=== PATIENT | female | born 1975 | race Caucasian/White ===

== ENCOUNTER → 2018-04-26 | Day surgery (SDC) | payer OTHER ==
[~2018-04-26] MED LIST: LIDOCAINE 1% 2 ML INJ ID PRN; LR 1,000 ML IV ONE
[2018-04-26 06:24] VITALS: BP 115/69
--- NOTE | 2018-04-26 08:04 | SOAPPROG ---
SOAP Progress Note Assessment/Plan: Assessment: patient arrived for DaVinci hysterectomy having seen Dr. Barnett yesterday to evaluate for vision loss. He told her she likely has intracranial hypertension , prescribed Diamox and is arranging for further w/u. With an possible IC HTN and the need for steep Trendelenburg it is felt best to delay the surgery until the patient is fully evaluated. D/W Dr. Rowland and multiple anesthesiologists. Plan: patient to get full evaluation and then return for surgery 04/26/18 07:59 Objective: Vital Signs Temp Pulse Resp BP Pulse Ox 37.0 C 77 18 115/69 96 04/26/18 06:56 04/26/18 06:56 04/26/18 06:56 04/26/18 06:56 04/26/18 06:56 ICD10 Worksheet Patient Problems: Problems Problem Status Onset Endometriosis Acute Intracranial hypertension Acute - ICD10 Problem Qualifiers (1) Endometriosis (2) Intracranial hypertension
== END | disposition home or self-care (01) ==
LOC: UNDOADMOB 05:42 → F3E 05:42 → EDSTATUS 07:15 → FSGY 08:00
PROVIDERS: ATTEND Obstetrics & Gynecology
DX: N80.9 Endometriosis, unspecified (principal); G93.2 Benign intracranial hypertension; Z53.09 Procedure and treatment not carried out because of other contraindication

== ENCOUNTER 2018-05-10 08:26 | Observation (INO) | payer OTHER ==
[2018-05-10] MEDS ORDERED: LR 1,000 ML IV ONE (08:33)
[2018-05-10] MEDS ORDERED: LIDOCAINE 1% 2 ML INJ ID PRN (08:33)
--- NOTE | 2018-05-10 08:55 | PDGENHP ---
History and Physical History and Physical: Assessment and Plan: 1. Dysmenorrhea Carol has very heavy menses as well as pelvic pain highly suggestive of endometriosis. We reviewed all conservative and surgical options. At the end of our discussion she is interested in surgical treatment. This will be a robotic assisted total laparoscopic hysterectomy, excision of endometriosis, and mid urethral sling. She has given me permission to remove one or both ovaries if I deem it would improve her pelvic pain issues. 2. Dyspareunia 3. Menorrhagia with regular cycle 4. Genuine stress incontinence, female Subjective: Patient ID: Carol Ray is a 42 y.o. female who presents to [facility] for surgical consultation. HPI Carol was scheduled for a robotic hysterectomy and mid urethral sling 2 weeks ago. She had seen an eye doctor who noted increased intraocular pressure. As a result we counseled her surgery until her evaluation was completed. This has now been done. She has been cleared for surgery. She is on Diamox to help keep the pressure down. He did remove some fluid which also brought her pressure down. She understands however there is still a very small risk of blindness as a result of the Trendelenburg position. Carol Ray presents for a preoperative visit. She is scheduled for a robotic assisted total laparoscopic hysterectomy, excision of endometriosis, and mid urethral sling. The risks, benefits, and alternatives were presented and informed consent was obtained. 40 minutes of this 40 minute appointment was spent counceling, reviewing the procedure in detail, and discussing the preoperative and postoperative instructions. Below is a copy of our prior visit note. Carol is a 42-year-old para 2 woman who presents for surgical consultation. She has extremely heavy menses. She underwent a pelvic ultrasound which showed a probable submucous polyp. She saw Dr. Paulino about her heavy menses. At the end of their discussion they decided to proceed to hysterectomy. Additionally she has dysmenorrhea, dyspareunia, dyschezia, and stress incontinence. The pain with her menses essentially immobilizes her. She describes it as a sharp stabbing pain where she cannot move. It will last about 20 minutes then go away temporarily. Will then come and go. It is typically worse when she has a heavy flow or is passing clots. She has a similar sharp stabbing pain with intercourse orgasms as well as passing bowel movements. She leaks urine with coughing laughing and sneezing. This has not improved since doing pelvic muscle strengthening exercises. PastMedicalHistory Past Medical History: Diagnosis Date Abnormal Pap smear of cervix Cervical cancer (HC code) per pt - CKC Class 2 obesity in adult 01/18/2018 Depression with anxiety Dysuria OCD (obsessive compulsive disorder) Urinary tract infection PastSurgicalHistory Past Surgical History: Procedure Laterality Date cervical conization loop electrode excision 2005 cone, not leep - [place] - pt told [place] CHOLECYSTECTOMY, LAPAROSCOPIC POLYPECTOMY anal PREVIOUS SURGERIES removal of lesion left forearm in childhood, benign lipoma TONSILLECTOMY TUBAL LIGATION 04/1998 tumors left forearm CURRENT MEDICATIONS: Current Outpatient Medications Medication Sig acetaZOLAMIDE (DIAMOX) 500 mg 12 hr capsule TK 1 C PO BID caprylic/capric triglyceride (CAPRYLIC-CAPRIC TRIGLY, BULK, MISC) cholecalciferol (D3-2000) 2,000 unit capsule IRON, FERROUS SULFATE, PO Lactobacillus acidophilus (PROBIOTIC PO) multivitamin (HEXAVITAMIN) per tablet Take 1 tablet by mouth daily. sertraline (ZOLOFT) 100 mg tablet Take 2 tablets by mouth daily. No current facility-administered medications for this visit. ALLERGIES: No known drug allergies I have reviewed, verified and agree with the past medical, surgical, , family, social and ROS history as documented by the RN today. Objective: Vital Signs: There were no vitals taken for this visit. Physical Exam Gen: This is an alert, well developed woman in no distress. Neuro: She moves all extremities. Psych: She is appropriate, oriented, with normal affect. Neck: No thyroid enlargement, adenopathy, or tenderness. Lungs: Clear to ascultation, no wheezes or rales. Heart: Regular rate and rhythm without obvious murmurs. Abdomen: Soft, non-tender, without guarding, rebound, or masses. Extremities: No edema or cyanosis. Pelvic: Normal external genitalia. Non-gaping introitus, vagina without discharge, adequately estrogenized, no significant prolapse. Cervix without lesions or discharge. Uterus normal sized. Adnexa non-tender without enlargement. She is exquisitely tender surrounding the cervix especially posteriorly and in the posterior cul-de-sac. The uterus has reduced mobility. The urethra is mobile with obvious leakage of urine with minimal coughing. DATA: I have reviewed the pertinent medical records. TIME/COMMUNICATION: I personally spent a total of 50 minutes. Of that 40 minutes was counseling/ coordination of patient's care. See my note above for details. Milton Rowland MD Board Certified Female Pelvic Medicine and Reconstructive Surgery Director of Minimally Invasive Gynecologic Surgery, [facility] Surgeon in Minimally Invasive Gynecologic Surgery [facility] Surgeon in Robotic Surgery
--- NOTE | 2018-05-10 08:55 | PDHPUP ---
History & Physical Update H&P update statement: This history and physical update is based on an assessment of the patient which was completed after admission or registration (within 24 hours), but prior to the surgery/procedure. H&P update: H&P reviewed & patient examined, no change in patient's condition since H&P completed
[2018-05-10] MEDS ORDERED: PHENAZOPYRIDINE HCL 200 MG TAB PO ONE (09:04)
[2018-05-10] MEDS ORDERED: ceFAZolin 2 GM/DEXTROSE 100 ML IV ONE (09:04)
[2018-05-10] MEDS ORDERED: GABAPENTIN 300 MG CAP PO ONE (09:04)
[2018-05-10] MEDS ORDERED: ACETAMINOPHEN 500 MG TAB PO ONE (09:04)
[2018-05-10] MEDS ORDERED: BUPIVACAINE/EPI 0.5% 30 ML SDV ONE (09:18)
[2018-05-10] MEDS ORDERED: MIDAZOLAM 2 MG/2 ML VIAL ONE (09:21)
[2018-05-10] MEDS ORDERED: PROPOFOL 200 MG/20 ML VIAL ONE (09:29)
[2018-05-10] MEDS ORDERED: fentaNYL 250 MCG/5 ML INJ ONE (09:29)
[2018-05-10] MEDS ORDERED: ROCURONIUM 50 MG/5 ML VIAL ONE (09:29)
[2018-05-10] MEDS ORDERED: LIDOCAINE 2% 100 MG/5 ML SYR ONE (09:29)
[2018-05-10] MEDS ORDERED: KETOROLAC 30 MG/1 ML SDV ONE (09:30)
[2018-05-10] MEDS ORDERED: ONDANSETRON 4 MG/2 ML VIAL ONE (09:30)
[2018-05-10] MEDS ORDERED: RANITIDINE 50 MG/2 ML VIAL ONE (09:30)
[2018-05-10] MEDS ORDERED: DEXAMETHASONE 4 MG/ML VIAL ONE (09:30)
[2018-05-10] MEDS ORDERED: PHENYLEPHRINE HCL 100 MCG/ML SYR ONE (11:09)
[2018-05-10] MEDS ORDERED: SUGAMMADEX SODIUM 200 MG/2 ML VIAL IVP ONE (11:10)
[2018-05-10] MEDS ORDERED: HYDROmorphONE/DILAUDID 2 MG/ML INJ ONE (11:10)
[2018-05-10] MEDS ORDERED: ONDANSETRON 4 MG/2 ML VIAL IVP PRN (11:26)
[2018-05-10] MEDS ORDERED: PROMETHAZINE HCL 25 MG/ML INJ IVP PRN (11:26)
[2018-05-10] MEDS ORDERED: ONDANSETRON DISINTEGRATING 4 MG TAB PO PRN (11:26)
[2018-05-10] MEDS ORDERED: OXYCODONE/APAP 5/325 TAB PO PRN (11:26)
[2018-05-10] MEDS ORDERED: LR 1,000 ML IV SCH (11:30)
--- NOTE | 2018-05-10 11:31 | POSTOPPROG ---
Post Op Note Date of Operation: 05/10/18 Surgeon: Milton Rowland Director [employer] Engineering: Velma Hansen Anesthesia: GET(General Endotracheal) Pre-op Diagnosis: Menorrhagia, endo, stress incontinence Post-op Diagnosis: Same Procedure: Robotic hyst, endo TOT, bilat ureterolysis Findings: Ureters function at end of case Inf/Abcess present in the surg proc area at time of surgery?: No EBL: Minimal Complications: None
--- NOTE | 2018-05-10 12:23 | GOP ---
DATE OF OPERATION: 05/10/2018 SURGEON: Milton Rowland MD OVERNIGHT HOUSEPERSON: Velma Hansen CFA ANESTHESIA: General. PREOPERATIVE DIAGNOSIS: 1. Menorrhagia. 2. Dysmenorrhea. 3. Endometriosis. 4. Cyclic pelvic pain. 5. Stress urinary incontinence. 6. Uterine prolapse. POSTOPERATIVE DIAGNOSIS: 1. Menorrhagia. 2. Dysmenorrhea. 3. Endometriosis. 4. Cyclic pelvic pain. 5. Stress urinary incontinence. 6. Uterine prolapse. PROCEDURE PERFORMED: 1. Robotic-assisted total laparoscopic hysterectomy, bilateral salpingectomy. 2. Excision of endometriosis in posterior cul-de-sac, bilateral ovarian fossae. 3. Bilateral ureterolysis. 4. Bilateral ovariopexy. 5. Uterosacral ligament colpopexy. 6. Transobturator sling. 7. Cystoscopy. FINDINGS: SPECIMENS: 1. Uterus, bilateral tubes. 1. Peritoneum with endometriosis. 2. ESTIMATED BLOOD LOSS: Scant. DESCRIPTION OF PROCEDURE: The patient was taken to the operating room where she was identified. Gen eral anesthesia was administered and found to be adequate. She was placed in lithotomy position and prepared and draped in normal sterile fashion. A Arrington catheter was then placed. A VCare uterine ma nipulator was placed into the endometrial cavity and sutured to the cervix. A 1 cm infraumbilical incision was made at the inferior margin of the umbilicus. The Veress needle w ith CO2 gas flowing was advanced into the peritoneal cavity. The abdomen was then insufflated with c arbon dioxide gas. There was no evidence of endometriosis on either diaphragm. There was endometrio sis in the posterior cul-de-sac and bilateral ovarian fossae. The left fallopian tube was along the mesosalpinx. The central portion was missing from a prior partial salpingectomy. The utero-ovarian ligament, followed by the round ligament then cauteri zed and transected. The anterior leaf of the broad ligament was then incised over the left uterine v essels and across the cervix. The bladder was gently dissected off the cervix and upper vagina. The left uterine vasculature was then cauterized and transected. The exact same procedure was performed on the patient's right side. A circumferential colpotomy incision was then made with the hot tamera and the specimen removed through the vagina. A bilateral ovariopexy was performed given her cyclic pelvic pain. This is accomplished with 3-0 Carlos ryl Rapide suture to attach each ovary to the ipsilateral round ligaments near the internal inguinal ring. The posterior cul-de-sac from the distal rectum up to the cervix and laterally to the uterosac ral ligaments was then completely excised. The patient required a bilateral ureterolysis to remove e ndometriosis overlying both ureters. The peritoneum at the pelvic brims were incised. The ureters w ere gently dissected free and lateralized off the overlying peritoneum and endometriosis. Once this was accomplished, the entire ovarian fossa peritoneum bilaterally was completely excised. The vaginal cuff was then closed with a running suture of of 0 V-Loc 180. A bilateral uterosacral li gament colpopexy was performed by attaching the lateral aspects of the vaginal cuff to the ipsilatera l uterosacral ligaments near the coccygeal-sacrospinous ligament complexes. The pelvis was then irri gated with sterile saline and hemostasis was present. The robot was then undocked. The fascia was c losed with 0 Vicryl, the skin with 4-0 Monocryl and Steri-Strips. A mid urethral incision was then made with a scalpel. Tunnels were created bilaterally out toward th e obturator internus muscles. Skin incisions were made over the obturator notches. The Halo trocar was placed through the left skin incision, redirected around the ischial pubic rami and out through t he vaginal incision using a vaginal finger as a guide. The sling was then attached and brought out a long the same course. The exact same procedure was performed on the patient's right side. The sling was then adjusted to allow a small mid urethral gap. The vaginal epithelium was closed with 2-0 Carlos ryl, the skin with 4-0 Monocryl. Cystoscopy was then performed. Both ureters had vigorous jets of urine. There was no evidence of bl adder, nor urethral injury seen. No mesh, nor suture was seen within the bladder, nor urethra. No o bvious pathology was seen. Anesthesia was then reversed. The patient taken the PACU awake in stable condition. COMPLICATIONS: None. DISPOSITION: Patient is stable to PACU. /[id number]/MODL
[2018-05-10] MEDS ORDERED: HYDROmorphONE/DILAUDID 1 MG/ML INJ ONE ×2 (12:36→13:21)
[2018-05-10] MEDS: HYDROmorphONE/DILAUDID 1 MG/ML INJ IVP PRN ×2 (12:37→15:27)
--- NOTE | 2018-05-10 12:51 | PDANEPAE ---
ANE History of Present Illness dysmenorrhea and incontinance, here for JUANIS, sling, endometriosis excesion, cysto ANE Past Medical History - Cardiovascular History Hx Hypertension: No Hx Arrhythmias: No Hx Chest Pain: No Hx Coronary Artery / Peripheral Vascular Disease: No Hx CHF / Valvular Disease: No Hx Palpitations: No Cardiovascular History Comment: hx of hypotension and dizziness 04/25/18. hyperlipidemia - Pulmonary History Hx COPD: No Hx Asthma/Reactive Airway Disease: No Hx Recent Upper Respiratory Infection: No Hx Oxygen in Use at Home: No Hx Sleep Apnea: No Sleep Apnea Screening Result - Last Documented: Negative - Neurologic History Hx Cerebrovascular Accident: No Hx Seizures: No Hx Dementia: No Neurologic History Comment: headaches. lightheadedness/ dizziness/ room spins. prior hx of abnormal CSF pressures-per pt report. poss intracranial htn, started on diamox bid and seen by Dr. Otto at [facility]- have requested records from office - Endocrine History Hx Diabetes: No - Renal History Hx Renal Disorders: No - Liver History Hx Hepatic Disorders: No - Neurological & Psychiatric Hx Hx Neurological and Psychiatric Disorders: Yes Neurological / Psychiatric History Comment: anxiety. depression - Cancer History Hx Cancer: Yes Cancer History Comment: cervical - Congenital Disorder History Hx Congenital Disorders: No - GI History Hx Gastrointestinal Disorders: Yes Gastrointestinal History Comment: hx of gib from ulcer. treated for H. Plyori. hx nausea, abd pain. hx alternating diarrhea and constipation - Other Health History Other Health History: dentures - full upper and lower. wears glasses. low ferritin - has been bleeding vaginally for >9 mos - Chronic Pain History Chronic Pain: No - Surgical History Prior Surgeries: 04/26/18 case cancelled in pre-op d/t possible intracranial htn , pt has been worked up. polyp removed from colon, age 4. fatty tumor removed from left arm, age 6. tonsillectomy, age 8. tubal, age 22. cholecystectomy, age 29. ervical cone, age 30 ANE Review of Systems Review of Systems: - Exercise capacity METS (RN): 4 METS ANE Patient History - Allergies Allergies/Adverse Reactions: No Known Allergies Allergy (Verified 05/09/18 12:45) - Home Medications Home Medications: Ascorbic Acid [Vitamin C 500 mg (*)] 03/31/18 [Last Taken 04/19/18] Ferrous Sulfate [Ferrous Sulf 325 MG (*)] 03/31/18 [Last Taken 04/19/18] Herbals/Supplements -Info Only 03/31/18 [Last Taken 04/19/18] Multivitamins [Multivitamin (*)] 03/31/18 [Last Taken 04/19/18] Sertraline HCl [Zoloft 100mg (*)] 03/31/18 [Last Taken 05/09/18] Diamox Sequel 500mg BID 05/09/18 [Last Taken 05/09/18] - NPO status NPO Since - Liquids (Date): 05/10/18 NPO Since - Liquids (Time): 07:00 NPO Since - Solids (Date): 05/09/18 NPO Since - Solids (Time): 22:30 - Smoking Hx Smoking Status: Former smoker - Family Anes Hx Family Hx Anesthesia Complications: none ANE Labs/Vital Signs - Labs Result Diagrams: 05/10/18 09:12 - Vital Signs Blood Pressure: 107/62 Heart Rate: 76 Respiratory Rate: 14 O2 Sat (%): 93 Height: 162.56 cm Weight: 88.451 kg ANE Physical Exam - Airway Neck exam: FROM Mallampati Score: Class 1 Mouth exam: dentures - Pulmonary Pulmonary: no respiratory distress - Cardiovascular Cardiovascular: regular rate and rhythym - ASA Status ASA Status: II (paperwork for recent neuro w/u reviewed, discussion about worsening symptoms had and decision to proceed) ANE Anesthesia Plan Anesthesia Plan: general endotracheal anesthesia
[2018-05-10] MEDS ORDERED: HYDROmorphONE/DILAUDID 2 MG/ML INJ IVP PRN (13:19)
[2018-05-10] MEDS ORDERED: fentaNYL 100 MCG/2 ML INJ IVP PRN (13:19)
[2018-05-10] MEDS ORDERED: NALOXONE HCL 0.4 MG/ML INJ IVP PRN (13:19)
[2018-05-10] MEDS ORDERED: LR 500 ML IV PRN (13:19)
[2018-05-10] MEDS ORDERED: oxyCODONE IR 5 MG TAB PO PRN (13:19)
[2018-05-10] MEDS ORDERED: DIAZEPAM 5 MG/ML 1 ML SYR IVP PRN (13:19)
[2018-05-10] MEDS ORDERED: MEPERIDINE 25 MG/0.5 ML AMP IVP PRN (13:19)
[2018-05-10] MEDS: LR 1,000 ML IV SCH ×2 (14:27→23:04)
[2018-05-10] MEDS: SIMETHICONE 80 MG TAB CHEW PO SCH ×2 (15:26→19:04)
[2018-05-10] MEDS: GABAPENTIN 300 MG CAP PO SCH ×3 (15:33→21:55)
[2018-05-10] MEDS: KETOROLAC 30 MG/1 ML SDV IVP SCH ×2 (16:54→18:22)
[2018-05-10] MEDS: HYDROCODONE/APAP 5/325 TAB PO PRN ×2 (18:26→22:33)
[2018-05-10] MEDS ORDERED: acetaZOLAMIDE 250 MG TAB PO SCH (21:00)
[2018-05-10] MEDS ORDERED: SERTRALINE HCL 100 MG TAB PO SCH (21:00)
[2018-05-10] MEDS: DOCUSATE SODIUM 100 MG CAP PO SCH (21:07)
[2018-05-10] MEDS: ACETAZOLAMIDE PO SCH (22:33)
[2018-05-11] MEDS: KETOROLAC 30 MG/1 ML SDV IVP SCH ×2 (00:28→05:53)
[2018-05-11] MEDS: HYDROCODONE/APAP 5/325 TAB PO PRN ×4 (04:17→12:45)
[2018-05-11 06:10] LABS: PLATELET COUNT 197 10^3/uL (150-400)
[2018-05-11] MEDS: SIMETHICONE 80 MG TAB CHEW PO SCH ×3 (07:05→12:44)
[2018-05-11] MEDS: ACETAZOLAMIDE PO SCH (08:45)
[2018-05-11] MEDS: DOCUSATE SODIUM 100 MG CAP PO SCH (08:45)
[2018-05-11] MEDS: GABAPENTIN 300 MG CAP PO SCH (09:03)
[2018-05-11 12:22] VITALS: BP 104/52
--- NOTE | 2018-05-11 13:29 | GDS ---
DISCHARGE DIAGNOSES: 1. Endometriosis. 2. Menorrhagia. 3. Dysmenorrhea. PROCEDURES: 1. Robotic-assisted total laparoscopic hysterectomy, bilateral salpingectomy. 2. Excision of endometriosis. 3. Bilateral ureterolysis. 4. Uterosacral ligament colpopexy. 5. Transobturator sling. HOSPITAL COURSE: The patient is a 42-year-old female with heavy and painful menses. She was taken t o the operating room on 05/10/2018, where she underwent the above-mentioned procedures without compli cations. Her postoperative course was uneventful. The morning after surgery, she was ambulating, voiding, and tolerating a general diet. She was discharged home on postoperative day #1 in good condition. Medi cations, included Cheraw and ibuprofen for pain. She is to follow up in the office 2 weeks after disc harge. /[id number]/MODL
== END 2018-05-11 13:30 | disposition home or self-care (01) ==
LOC: FSGY 08:26 → F3E 11:26 → FLD 14:09
PROVIDERS: ADMIT Obstetrics & Gynecology; ATTEND Obstetrics & Gynecology
PROC: 0TUC4JZ Supplement Bladder Neck with Synthetic Substitute, Percutaneous Endoscopic Approach (ICD-10-PCS; principal; 2018-05-10 09:45)
PROC: 0UT74ZZ Resection of Bilateral Fallopian Tubes, Percutaneous Endoscopic Approach (ICD-10-PCS; principal; 2018-05-10 09:45)
PROC: 0UT94ZZ Resection of Uterus, Percutaneous Endoscopic Approach (ICD-10-PCS; principal; 2018-05-10 09:45)
PROC: 0TSD4ZZ Reposition Urethra, Percutaneous Endoscopic Approach (ICD-10-PCS; principal; 2018-05-10 09:45)
PROC: 8E0W8CZ Robotic Assisted Procedure of Trunk Region, Via Natural or Artificial Opening Endoscopic (ICD-10-PCS; principal; 2018-05-10 09:45)
PROC: 0UQG4ZZ Repair Vagina, Percutaneous Endoscopic Approach (ICD-10-PCS; principal; 2018-05-10 09:45)
DX: N80.0 Endometriosis of uterus (principal); N92.0 Excessive and frequent menstruation with regular cycle; N94.6 Dysmenorrhea, unspecified; R10.2 Pelvic and perineal pain; N39.3 Stress incontinence (female) (male); N81.4 Uterovaginal prolapse, unspecified
CPT/HCPCS: 51992; 57425; 58571; G0378; C1771; J0690; J1100; J1170; J1885; J2001; J2250; J2270; J2370; J2405; J2704; J2780; J3010